=== PATIENT | female | born 1980 | race Two or more races ===

== ENCOUNTER 2016-09-26 05:06 | Inpatient (IN) | payer OTHER ==
[2016-09-26] MEDS ORDERED: TUBERCULIN PPD 5 TU/0.1ML SYRINGE (IN PATIENT USE ONLY) ID ONE (06:03)
[2016-09-26] MEDS ORDERED: BUTORPHANOL TARTRATE 1 MG/ML VIAL IVPUSH PRN (06:25)
[2016-09-26] MEDS ORDERED: PROMETHAZINE HCL 25 MG/1 ML VIAL IVPUSH ONE (06:25)
--- NOTE | 2016-09-26 06:25 | HP ---
Past Medical History - Primary Care Physician PCP:: Ned George - Admission Chief Complaint: rom, labor, ama History of Present Illness: 36 yo f , 38 weeks c/o leakage fluid , clear, irregular contarction, no bleeding, no fever,cx 3 cm 80 vx -2 mr,clear .fhr cat 1, irregular contraction History Source: Patient Limitations to Obtaining History: No Limitations - Past Medical History ...: 2 ...Para: 1 - Past Surgical History Hx Myomectomy: No Hx Transabdominal Cerclage: No - Alcohol/Substance Use Hx Alcohol Use: No - Social History Usual Living Arrangement: Yes: With Spouse History of Recent Travel: No Review of Systems - Review of Systems Constitutional: reports: No Symptoms Eyes: reports: No Symptoms HENT: reports: No Symptoms Neck: reports: No Symptoms Cardiovascular: reports: No Symptoms Respiratory: reports: No Symptoms Gastrointestinal: reports: No Symptoms Integumentary: reports: No Symptoms Neurological: reports: No Symptoms Endocrine: reports: No Symptoms Hematology/Lymphatic: reports: No Symptoms Psychiatric: reports: No Symptoms Physical Exam - Maternity Constitutional: Yes: Well Nourished, No Distress, Calm Eyes: Yes: WNL, Conjunctiva Clear, EOM Intact HENT: Yes: WNL, Atraumatic, Normocephalic Neck: Yes: WNL, Supple, Trachea Midline Cardiovascular: Yes: WNL, Regular Rate and Rhythm Breast(s): Yes: WNL - Abdominal Exam/OB Fundal Height: 38 Number of Fetuses: Single Presentation: Vertex Contractions: Yes Regularity: Irregular Intensity: Moderate Monitor Mode: External Heart Rate Location: [facility] Category: I - Vaginal Exam/OB Vaginal Bleediing: No Speculum Exam: No Dilatation (cm): 3 cm Effacement (%): 80 Amniotic Membrane Status: Ruptured Nitrazine Test: Positive Amniotic Fluid: Yes: Clear Presentation: Vertex/Position Station: -2 - Physical Exam Musculoskeletal: Yes: WNL Extremities: Yes: WNL Edema: Yes Edema: LLE: Trace, RLE: Trace Deep Tendon Reflex Grade: Normal +2 Psychiatric: Yes: WNL Hemorrhage Risk Assessment - Risk Factors Risk Score: 0 Risk Level: Low Risk Problem List - Problems (1) with 38 completed weeks gestation Code(s): Z3A.38 - 38 WEEKS GESTATION OF (2) membrane rupture Code(s): GYJ7012 - (3) Labor established Code(s): SHX3258 - Assessment/Plan admit, fhm, pain management
[2016-09-26 06:27] VITALS: BMI 34.2
[2016-09-26 08:29] LABS: BASOPHIL 0.2 % (0-2.0); EOSINOPHIL 0.2 % (0-4.5); MCH 33.6 pg (25.7-33.7); MCHC 33.7 g/dl (32.0-36.0); MEAN CELL VOLUME 99.6 fl (80-96); PLATELET COUNT 201 K/MM3 (134-434); RDW 12.9 % (11.6-15.6); WHITE BLOOD COUNT 11.4 K/mm3 (4.0-10.0)
[2016-09-26 08:42] LABS: INR 1.05 (0.82-1.09); PROTHROMBIN TIME (PATIENT) 11.6 SEC (9.98-11.88)
[2016-09-26 08:52] LABS: ANION GAP 11 (8-16); CALCIUM 8.8 mg/dL (8.5-10.1); CO2 24 mmol/L (21-32); CREATININE 0.7 mg/dL (0.55-1.02); GLUCOSE,RANDOM 77 mg/dL (74-106)
[2016-09-26 09:07] LABS: HIV 1 & 2 AB NEGATIVE; HIV 1 AGp24 NEGATIVE
[2016-09-26] MEDS ORDERED: OXYTOCIN 15 UNITS/ LR 250 ML 250 ML IVPB SCH (09:15)
[2016-09-26] MEDS: DEXTROSE 5%-LACTATED RINGERS 1,000 ML IV SCH (09:30)
--- NOTE | 2016-09-26 15:05 | PN ---
Progress Note, Labor Vaginal Exam #1 Labor Exam Date: 09/26/16 Heart Rate (range): 140 Dilatation: 8 Effacement (%): 100 Amniotic Membrane Status: Ruptured Presentation: Vertex/Position Station: 0 Remarks: 36 yo , active labor 1. Excellent cervical change, anticipate vaginal delivery 2. GBS negative 3. Declines offer for epidural 4. Category II FHT, 140 minimal variability + early deceleration, will start O2 via facemask, change to LLat 5. Will continue expectant management
[2016-09-26] MEDS ORDERED: BISACODYL 10 MG SUPP.RECT RC PRN (15:29)
[2016-09-26] MEDS ORDERED: oxyCODONE HCL 5 MG TABLET PO PRN (15:29)
[2016-09-26] MEDS ORDERED: IBUPROFEN 600 MG TABLET (FP) PO PRN (15:29)
[2016-09-26] MEDS ORDERED: BENZOCAINE 28 GM HEMORRHOIDAL OINTMENT TP PRN (15:29)
[2016-09-26] MEDS ORDERED: METHYLERGONOVINE MALEATE 0.2 MG/1 ML AMP IM PRN (15:29)
[2016-09-26] MEDS ORDERED: BENZOCAINE 20% 57 GM BOTTLE TP PRN (15:29)
[2016-09-26] MEDS ORDERED: WITCH HAZEL 50% (TUCKS) 40 PAD/JAR PAD TP PRN (15:29)
[2016-09-26] MEDS ORDERED: ACETAMINOPHEN 325 MG TABLET (FP) PO PRN (15:29)
--- NOTE | 2016-09-26 15:29 | PN ---
Delivery - Delivery Vaginal Delivery: No Problems Type of Anesthesia: Local Episiotomy/Laceration: Midline, 1st degree EBL (cc): 300 Delivery, Single - Stages of Labor Date 1st Stage Initiatied: 09/26/16 Time 1st Stage Initiated: 10:30 Date 2nd Stage Initiated: 09/26/16 Time 2nd Stage Initiated: 15:10 Date of Delivery: 09/26/16 Time of Delivery: 15:12 Date Placenta Delivered: 09/26/16 Time Placenta Delivered: 15:25 - Condition of Phone Manager/Dry Chain Operator Present: No Gender: Female Position: OA - 1 Minute Total Score: 9 5 Minutes Total Score: 9 - [place] Feeding Plan Initial Plan: Elected not to breastfeed exclusively throughout hospitalization Remarks - Remarks Remarks: Patient progressed to fully dilated and at 1512 via delivered a viable female in O position, APGARs 9,9. Weight and length unknown at this time. Head delivered spontaneously followed by shoulders and body without difficulty. with spontaneous cry and placed on mother's abdomen. Nose and mouth was bulb suctioned. Cord was clamped and cut. Perineum and vagina examined, a first laceration was noted and repaired in the usual fashion. Rectal exam revealed no sutures in rectum. Placenta was delivered spontaneously and intact. 20 units of pitocin in 1 L IVF was given. All counts correct x 2. Mother and stable in LDR. EBL 300cc.
[2016-09-26] MEDS ORDERED: OXYTOCIN 20 UNITS in 0.9% NS 1,000 ML IV SCH (15:30)
[2016-09-27 08:28] LABS: BASOPHIL 0.1 % (0-2.0); EOSINOPHIL 0.2 % (0-4.5); MCH 33.7 pg (25.7-33.7); MCHC 33.7 g/dl (32.0-36.0); MEAN PLT VOLUME 8.8 fl (7.5-11.1); NEUTROPHILS 71.8 % (42.8-82.8); PLATELET COUNT 170 K/MM3 (134-434); RDW 12.9 % (11.6-15.6); WHITE BLOOD COUNT 14.3 K/mm3 (4.0-10.0)
--- NOTE | 2016-09-27 09:18 | PN ---
Post Progress Note - Subjective Subjective: Patient without acute complaints. Reports tolerating oral intake without nausea or vomiting. Ambulating without dizziness. Denies fevers or chills. Pain well controlled with oral pain medication. without difficulty. Passing flatus. Post Day: 1 Type of Delivery: Vital Signs: Vital Signs Temperature 97.4 F L 09/27/16 06:00 Pulse Rate 82 09/27/16 06:00 Respiratory Rate 20 09/27/16 06:00 Blood Pressure 106/60 09/27/16 06:00 O2 Sat by Pulse Oximetry (%) Uterus: Yes: Fundus Firm, Fundus below umbilicus Abdomen/GI: Yes: Abdomen soft, Passing flatus, Tolerating PO. No: Abdominal Distention, Tender Lochia: Yes: Serosa Lochia, amount: Small Extremities: Yes: Calves non-tender, Edema (trace) Perineum: Yes: Laceration Activity: Ambulating - Labs Labs: CBC WBC 14.3 K/mm3 (4.0-10.0) H 09/27/16 07:20 RBC 3.00 M/mm3 (3.60-5.2) L 09/27/16 07:20 Hgb 10.1 GM/dL (10.7-15.3) L D 09/27/16 07:20 Hct 30.0 % (32.4-45.2) L 09/27/16 07:20 MCV 100.0 fl (80-96) H 09/27/16 07:20 MCHC 33.7 g/dl (32.0-36.0) 09/27/16 07:20 RDW 12.9 % (11.6-15.6) 09/27/16 07:20 Plt Count 170 K/MM3 (134-434) 09/27/16 07:20 MPV 8.8 fl (7.5-11.1) 09/27/16 07:20 Neutrophils % 71.8 % (42.8-82.8) 09/27/16 07:20 Lymphocytes % 17.6 % (8-40) 09/27/16 07:20 Monocytes % 10.3 % (3.8-10.2) H 09/27/16 07:20 Eosinophils % 0.2 % (0-4.5) 09/27/16 07:20 Basophils % 0.1 % (0-2.0) 09/27/16 07:20 Assessment/Plan 36 yo PPD # 1 s/p , afebrile, vital signs stable, doing well 1. Continue routine care. 2. AM CBC with mild asymptomatic anemia 3. Rh positive status, no rhogam indicated. 4. Encourage ambulation 5. Continue oral pain medication 6. Anticipate discharge home day #2
[2016-09-27] MEDS: PRENATAL VITAMINS W/ FOLIC ACID TABLET (FP) PO SCH (09:41)
[2016-09-27] MEDS: DEXTROSE 5%-LACTATED RINGERS 1,000 ML IV SCH (20:03)
[2016-09-27] MEDS ORDERED: SENNOSIDES/DOCUSATE COMBO (SENNA PLUS) TABLET (UD) PO PRN (22:00)
[2016-09-27 22:35] VITALS: PULSE 82
--- NOTE | 2016-09-28 08:29 | PN ---
Post Progress Note - Subjective Subjective: Patient without acute complaints. Reports tolerating oral intake without nausea or vomiting. Ambulating without dizziness. Denies fevers or chills. Pain well controlled with oral pain medication. without difficulty. Passing flatus. Post Day: 2 Type of Delivery: Vital Signs: Vital Signs Temperature 99.3 F 09/27/16 22:00 Pulse Rate 82 09/27/16 22:00 Respiratory Rate 18 09/27/16 22:00 Blood Pressure 118/79 09/27/16 22:00 O2 Sat by Pulse Oximetry (%) Breast Exam: Yes: Engorged Uterus: Yes: Fundus Firm Abdomen/GI: Yes: Abdomen soft, Passing flatus, Tolerating PO. No: Abdominal Distention, Tender Lochia: Yes: Serosa Lochia, amount: Small Extremities: Yes: Calves non-tender Activity: Ambulating - Labs Labs: CBC WBC 14.3 K/mm3 (4.0-10.0) H 09/27/16 07:20 RBC 3.00 M/mm3 (3.60-5.2) L 09/27/16 07:20 Hgb 10.1 GM/dL (10.7-15.3) L D 09/27/16 07:20 Hct 30.0 % (32.4-45.2) L 09/27/16 07:20 MCV 100.0 fl (80-96) H 09/27/16 07:20 MCHC 33.7 g/dl (32.0-36.0) 09/27/16 07:20 RDW 12.9 % (11.6-15.6) 09/27/16 07:20 Plt Count 170 K/MM3 (134-434) 09/27/16 07:20 MPV 8.8 fl (7.5-11.1) 09/27/16 07:20 Neutrophils % 71.8 % (42.8-82.8) 09/27/16 07:20 Lymphocytes % 17.6 % (8-40) 09/27/16 07:20 Monocytes % 10.3 % (3.8-10.2) H 09/27/16 07:20 Eosinophils % 0.2 % (0-4.5) 09/27/16 07:20 Basophils % 0.1 % (0-2.0) 09/27/16 07:20 Assessment/Plan 36 yo PPD # 2 s/p , afebrile, vital signs stable, doing well 1. Patient stable for discharge home today. 2. Patient encouraged to contact MD for: - Severe pain not controlled by oral pain medication - Fevers or chills - Nausea or vomiting, intolerance of oral intake 3. Patient to follow up in office in 4-6 weeks for visit
--- NOTE | 2016-09-28 08:59 | DS ---
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 Vital Signs: Vital Signs Temperature 99.3 F 09/27/16 22:00 Pulse Rate 82 09/27/16 22:00 Respiratory Rate 18 09/27/16 22:00 Blood Pressure 118/79 09/27/16 22:00 O2 Sat by Pulse Oximetry (%) Labs: CBC, BMP 09/27/16 07:20 09/26/16 08:10 Delivery - Delivery Vaginal Delivery: No Problems Type of Anesthesia: Local Episiotomy/Laceration: Midline, 1st degree EBL (cc): 300 Delivery, Single - Stages of Labor Date 1st Stage Initiatied: 09/26/16 Time 1st Stage Initiated: 10:30 Date 2nd Stage Initiated: 09/26/16 Time 2nd Stage Initiated: 15:10 Date of Delivery: 09/26/16 Time of Delivery: 15:12 Time Placenta Delivered: 15:25 - Condition of Infant Servicer Travel Trailers/Promotions Assistant Present: No Gender: Female Weight: 6 lb 2 oz Position: OA Total Hours ROM (Hrs/Mins): 13/25 - 1 Minute Total Score: 9 5 Minutes Total Score: 9 - Feeding Plan Initial Plan: Elected not to breastfeed exclusively throughout hospitalization Discharge Summary Reason For Visit: ADMIT LABOR Current Active Problems membrane rupture (Acute) Labor established (Acute) with 38 completed weeks gestation (Acute) Status post vaginal delivery (Acute) Procedures: Principal: vaginal delivery Other Procedures: pitocin augmentation Hospital Course: patietn presented with PROM, early labor. Pitocin augmentation started Patient delivered via HD #1 Patient remained afebrile, vital signs stable, for discharge home PPD #2 Condition: Good - Instructions Diet, Activity, Other Instructions: Physical activity Resume your normal everyday activity as tolerated no heavy lifting or exercise until seen by your surgeon. You may walk unlimited wilfred of and climb stairs. You may resume driving the car when you feel safe and comfortable behind the wheel. No sexual activity as instructed. Wound care If you have a bandage, leave it on, and keep dry for 48-72 hours. After that time discard the outer bandage. If they are tapes on the skin under the out of bandage leave them in place. They will peel off in the next 7 to 10 days. Do Not Peel them off. You may shower the day after surgery. If there are tapes present on the skin, you may shower over them. Diet There are no dietary restrictions. Eat healthy, high-fiber foods. Drink 6 to 8 glasses of liquid each day. This will assist in keeping your bowels are regular. Pain management You may take Tylenol or acetaminophen or Ibuprofen (for example, Motrin, Advil etc.) from my pain prescription medication is ordered should be taken as prescribed for moderate to severe pain. Call MD for any of the following: Severe pain not relieved by medication Fever of 101 or higher Excessive bleeding or drainage on dressing Inability to urinate Referrals: Kimberly Gee MD [Staff Physician] - Disposition: HOME - Home Medications Comprehensive Discharge Medication List: Ambulatory Orders Vit/Iron Fumarate/FA [ Tablet] 1 each PO DAILY 09/26/16
[2016-09-28 09:00] VITALS: BP 119/76; TEMP 97.2
[2016-09-28] MEDS: PRENATAL VITAMINS W/ FOLIC ACID TABLET (FP) PO SCH (09:40)
== END 2016-09-28 11:00 | disposition home or self-care (01) | DRG 775 ==
LOC: JLDR 05:06 → J3W 17:05
PROVIDERS: ADMIT Obstetrics & Gynecology; ATTEND Obstetrics & Gynecology
PROC: 0HQ9XZZ Repair Perineum Skin, External Approach (ICD-10-PCS; principal; 2016-09-26)
PROC: 10E0XZZ Delivery of Products of Conception, External Approach (ICD-10-PCS; 2016-09-26)
DX: O70.0 First degree perineal laceration during delivery (principal); Z3A.38 38 weeks gestation of pregnancy; Z37.0 Single live birth
CPT/HCPCS: 36415; 59409; 80048; 85025; 85610; 85730; 86593; 86850; 86900; 86901; 87389